=== PATIENT | female | born 1980 | race Caucasian/White ===

== ENCOUNTER 2017-11-11 22:25 | Emergency (ER) | payer OTHER ==
[~2017-11-11] VITALS: Ht 170.2 cm; Wt 95.3 kg
[2017-11-11 22:30] VITALS: BP_SYST 147
[2017-11-12 00:01] VITALS: BP_SYST 123
== END 2017-11-12 00:01 | disposition home or self-care (01) ==
LOC: SED 22:25
DX: F45.8 Other somatoform disorders (principal)
CPT/HCPCS: 71045; 81025; 99283